=== PATIENT | male | born 1950 | race Two or more races ===

== ENCOUNTER 2017-08-11 10:15 | Inpatient (IN) | payer OTHER ==
[~2017-08-11] VITALS: Ht 154.9 cm; Wt 65.8 kg
[2017-08-11] MEDS ORDERED: JANUMET XR 50-1 EAC1 PO (14:30)
[2017-08-11] MEDS ORDERED: FENOFIBRATE160 MG PO (14:30)
[2017-08-11] MEDS ORDERED: NORVASC5 MG PO (14:31)
[2017-08-11] MEDS ORDERED: MICARDIS80 MG PO (14:31)
[2017-08-11] MEDS ORDERED: GLIMEPIRIDE2 MG PO (14:31)
[2017-08-11] MEDS ORDERED: LOVAZA1 GM PO (14:32)
== END 2017-08-19 14:40 | disposition home or self-care (01) | DRG 331 ==
LOC: O/R 08-16 08:55 → SURH 08-16 10:15
PROVIDERS: Colon & Rectal Surgery
PROC: 07TC4ZZ Resection of Pelvis Lymphatic, Percutaneous Endoscopic Approach (ICD-10-PCS; 2017-08-16)
PROC: 0DBU4ZZ Excision of Omentum, Percutaneous Endoscopic Approach (ICD-10-PCS; 2017-08-16)
PROC: 0DTF4ZZ Resection of Right Large Intestine, Percutaneous Endoscopic Approach (ICD-10-PCS; principal; 2017-08-16 13:30)
DX: C18.2 Malignant neoplasm of ascending colon (principal); R59.0 Localized enlarged lymph nodes; I11.9 Hypertensive heart disease without heart failure; E11.9 Type 2 diabetes mellitus without complications; E78.1 Pure hyperglyceridemia; F17.210 Nicotine dependence, cigarettes, uncomplicated

== ENCOUNTER 2018-09-15 09:22 | Day surgery (SDC) | payer OTHER ==
[~2018-09-15 09:22] MED LIST: FENOFIBRATE160 MG PO; GLIMEPIRIDE2 MG PO; JANUMET XR 50-1 EAC1 PO; LOVAZA1 GM PO; MICARDIS80 MG PO; NORVASC5 MG PO
== END 2018-09-15 15:10 | disposition home or self-care (01) ==
LOC: AMB-ENDOS 09:22
DX: K64.1 Second degree hemorrhoids (principal)

== ENCOUNTER 2019-11-30 07:30 | Day surgery (SDC) | payer OTHER | END 2019-11-30 12:00 | disposition home or self-care (01) | LOC: AMB-ENDOS 07:30 | DX: K62.89 Other specified diseases of anus and rectum (principal); K64.1 Second degree hemorrhoids; K57.30 Diverticulosis of large intestine without perforation or abscess without bleeding ==

== ENCOUNTER 2021-01-02 06:51 | Day surgery (SDC) | payer OTHER | END 2021-01-02 11:55 | disposition home or self-care (01) | LOC: AMB-ENDOS 06:51 | PROVIDERS: ATTEND Colon & Rectal Surgery | DX: K62.89 Other specified diseases of anus and rectum (principal); K64.0 First degree hemorrhoids; Z20.822 Contact with and (suspected) exposure to COVID-19 ==

== ENCOUNTER 2022-11-05 07:44 | Outpatient (CLI) | payer OTHER | END 2022-11-05 07:46 | disposition home or self-care (01) | LOC: NUCLEAR 07:44 | PROVIDERS: ATTEND Internal Medicine Pulmonary Disease | DX: J43.9 Emphysema, unspecified (principal); R91.1 Solitary pulmonary nodule; Z72.0 Tobacco use; C67.9 Malignant neoplasm of bladder, unspecified | CPT/HCPCS: 78816; A9552 ==

== ENCOUNTER 2022-12-13 08:48 | Outpatient (CLI) | payer OTHER | END 2022-12-13 08:55 | disposition home or self-care (01) | LOC: SONOGRAMA 08:48 | PROVIDERS: ATTEND Pathology Anatomic Pathology & Clinical Pathology | DX: D11.7 Benign neoplasm of other major salivary glands (principal) ==